=== PATIENT | male | born 1990 | race Caucasian/White ===

== ENCOUNTER 2016-09-20 04:31 | Emergency (ER) | payer BC, OTHER ==
[2016-09-20] MEDS ORDERED: HYOSCYAMINE SULFATE ODT 0.125 MG TAB.SUBL SL ONE (04:38)
[2016-09-20] MEDS ORDERED: ACETAMINOPHEN 500 MG TABLET PO ONE (04:41)
--- NOTE | 2016-09-20 04:43 | Emergency Department Record ---
History of Present Illness - General Chief Complaint: Abdominal Pain Stated Complaint: ABDOMINAL PAIN Time Seen by Provider: 09/20/16 04:31 Source: Patient Mode of Arrival: Ambulatory Limitations: No limitations - History of Present Illness Initial Comments: 26 yo male presents to ED with a CC of bilaterally lower quadrant abdominal pain symptoms. Patient denies nausea/vomiting, but reports "mucousy stools" today. Patient denies fevers, chills, or recent illness. Patient denies urinary symptoms or health problems at his baseline. Patient denies previous abdominal surgeries. MD Complaint: Abdominal pain Onset/Timin -: Days(s) Location: LLQ, RLQ Radiation: None Migration to: No migration Severity: Moderate Quality: Cramping Consistency: Constant Improves With: Nothing Worsens With: Nothing - Related Data Home Medications Medication Instructions Recorded Confirmed Last Taken Abilify 10 mg PO DAILY 07/21/13 09/20/16 09/19/16 Lamotrigine [Lamotrigine ER] 300 mg PO DAILY 07/21/13 09/20/16 09/19/16 Dextroamphetamine/Amphetamine 20 mg PO TID 09/20/16 09/20/16 09/19/16 [Adderall 20 mg Tablet] Previous Rx's Medication Instructions Recorded Ciprofloxacin HCl [Cipro] 500 mg PO Q12HR #19 tablet 09/20/16 Metronidazole [Flagyl] 500 mg PO TID #29 tablet 09/20/16 Allergies Allergy/AdvReac Type Severity Reaction Status Date / Time No Known Drug Allergies Allergy Verified 07/21/13 00:03 Review of Systems Constitutional: Denies: Chills, Fever, Malaise, Night sweats Eyes: Denies: Eye discharge, Eye pain ENT: Denies: Congestion, Ear pain, Epistaxis Respiratory: Denies: Cough, Dyspnea Cardiovascular: Denies: Chest pain, Dyspnea on exertion Endocrine: Denies: Fatigue, Heat or cold intolerance Gastrointestinal: Reports: Abdominal pain, Diarrhea. Denies: Constipation, Nausea, Vomiting Genitourinary: Denies: Incontinence, Retention Musculoskeletal: Denies: Arthralgia, Back pain, Gout, Joint swelling Skin: Denies: Bruising, Change in color Neurological: Denies: Abnormal gait, Confusion, Headache, Seizure Psychiatric: Denies: Anxiety Hematological/Lymphatic: Denies: Anemia, Blood Clots Past Medical History - SOCIAL HISTORY Smoking Status: Current every day smoker - RESPIRATORY Hx Respiratory Disorders: No - CARDIOVASCULAR Hx Cardio Disorders: No - NEURO Hx Neuro Disorders: No - GI Hx GI Disorders: No - Hx Genitourinary Disorders: No - ENDOCRINE Hx Endocrine Disorders: No - MUSCULOSKELETAL Hx Musculoskeletal Disorders: No - PSYCH Hx Psych Problems: Yes Comment:: bipolar - HEMATOLOGY/ONCOLOGY Hx Hematology/Oncology Disorders: No Physical Exam - General General Appearance: Alert, Oriented x3, Cooperative, No acute distress Limitations: No limitations - Head Head exam: Atraumatic, Normocephalic, Normal inspection Head exam detail: negative: Abrasion, Contusion, Whittaker's sign, General tenderness, Hematoma, Laceration - Eye Eye exam: Normal appearance. negative: Conjunctival injection, Periorbital swelling, Periorbital tenderness, Scleral icterus - ENT Ear exam: negative: Auricular hematoma, Auricular trauma Nasal Exam: negative: Active bleeding, Discharge, Dried blood, Foreign body Mouth exam: negative: Drooling, Laceration, Muffled voice, Tongue elevation - Neck Neck exam: Normal inspection. negative: Meningismus, Tenderness - Respiratory Respiratory exam: Normal lung sounds bilaterally. negative: Rales, Respiratory distress, Rhonchi, Stridor - Cardiovascular Cardiovascular Exam: Normal rhythm, Normal heart sounds, Tachycardia - GI/Abdominal GI/Abdominal exam: Soft, Other (Abdomen is non-tender on examination, no rebound or guarding are present). negative: Rebound, Rigid, Tenderness - Rectal Rectal exam: Deferred - exam: Deferred - Extremities Extremities exam: Normal inspection. negative: Pedal edema, Tenderness - Back Back exam: Denies: CVA tenderness (R), CVA tenderness (L) - Neurological Neurological exam: Alert, Normal gait, Oriented X3 - Psychiatric Psychiatric exam: Normal affect, Normal mood - Skin Skin exam: Normal color. negative: Abrasion Type of lesion: negative: abrasion Course Vital Signs 09/20/16 04:37 Temperature 99.8 F H Pulse Rate [ 118 H Pulse Ox Probe] Respiratory 32 H Rate Blood Pressure 144/92 [Left Arm] Pulse Ox 100 - Reevaluation(s) Reevaluation #1: 09/20/16 05:44 Labs reviewed and are grossly unremarkable for an acute process. CT Abdomen/Pelvis: Bowel wall thickending of the ascending and transverse colon c/w colitis. Patient reassessed and updated on all results, will initiate treatment with Cpiro and Flagyl with instructions for outpatient treatment for his colitis symptoms. Patient reports improvement in his abdominal pain symptoms, pulse improved, and the patient appears stable for discharge at this time. 09/20/16 05:51 Medical Decision Making - Lab Data Result diagrams: 09/20/16 04:50 09/20/16 04:50 Disposition Disposition: Discharge Clinical Impression: Colitis Disposition: Home, Self-Care Condition: (2) Stable Instructions: Colitis (ED) Additional Instructions: Return to ED if your symptoms worsen or if you have any concerns. Flagyl and Cipro as directed. Follow-up with your family doctor in 3-5 days as directed. Prescriptions: Ciprofloxacin HCl [Cipro] 500 mg PO Q12HR #19 tablet Metronidazole [Flagyl] 500 mg PO TID #29 tablet Forms: Patient Portal Access Time of Disposition: 05:48 Quality - Quality Measures Quality Measures: N/A - Blood Pressure Screening Blood Pressure Classification: Hypertensive Reading Systolic Measurement: 149 Diastolic Measurement: 90 Screening for High Blood Pressure: < First Hypertensive BP, F/U Documented > [ G8950] First Hypertensive Follow-up Interventions: Referral to alternative/primary care provider.
[2016-09-20 04:55] LABS: BASO % 0.1 % (0-6); EOS % 0.3 % (0-6); HEMATOCRIT 43.3 % (42.0-52.0); MEAN CELL VOLUME 87.8 fl (81-97); MEAN CORPUSCULAR HEMOGLOBIN 30.4 pg (27-33); MEAN CORPUSCULAR HGB CONC 34.6 g/dl (32-36); MEAN PLATELET VOLUME 9.4 fl (7.4-10.4); MONO % 6.5 % (0-9); PLATELET COUNT 293 K/uL (130-400); RED BLOOD COUNT 4.93 M/uL (4.40-5.70); RED CELL DISTRIBUTION WIDTH 13.6 % (11.5-14.5); WHITE BLOOD COUNT W/O DIFF 11.5 K/uL (4.2-12.2)
[2016-09-20 04:59] LABS: URINE APPEARANCE CLEAR; URINE BILIRUBIN NEGATIVE (NEGATIVE); URINE BLOOD NEGATIVE (NEGATIVE); URINE COLOR YELLOW; URINE GLUCOSE (UA) NEGATIVE (NEGATIVE); URINE KETONE NEGATIVE (NEGATIVE); URINE LEUKOCYTE ESTERASE NEGATIVE (NEGATIVE); URINE NITRITE NEGATIVE (NEGATIVE); URINE PROTEIN NEGATIVE (NEGATIVE); URINE UROBILINOGEN 0.2 E.U./dL (0.20 - 1.00)
[2016-09-20 05:07] LABS: ALB/GLOB RATIO 1.5 (1.1-1.8); ALBUMIN 4.1 gm/dL (3.5-5.0); ALKALINE PHOSPHATASE 67 U/L (38-126); ALT/SGPT 53 U/L (21-72); ANION GAP 12.9 (7-16); AST/SGOT 38 U/L (17-59); BILIRUBIN,TOTAL 0.68 mg/dL (0.2-1.3); BLOOD UREA NITROGEN 8 mg/dL (9-20); CARBON DIOXIDE 26.1 mmol/L (22-30); CREATININE 0.9 mg/dL (0.66-1.25); EST GLOMERULAR FILTRATION RATE > 60 ml/min; GLUCOSE,RANDOM 121 mg/dL (70-110); LIPASE 74 U/L (23-300); TOTAL PROTEIN 6.9 gm/dL (6.3-8.2)
[2016-09-20] MEDS ORDERED: CIPROFLOXACIN HCL 500 MG TABLET PO ONE (05:48)
[2016-09-20] MEDS ORDERED: METRONIDAZOLE 250 MG TABLET PO ONE (05:48)
--- NOTE | 2016-09-20 16:23 | CT SCAN REPORT ---
EXAM: CT SCAN ABDOMEN/PELVIS W CONTRAST HISTORY: ABDOMEN AND BACK PAIN. LOOSE STOOLS. TECHNIQUE: Contrast-enhanced helical CT examination of the abdomen and pelvis is performed including delayed images through the kidneys with 100 mL of Omnipaque-300 utilized. Oral contrast was not utilized mildly limiting evaluation of bowel. COMPARISON: None. FINDINGS: Mild patchy opacities are noted within the dependent lungs consistent with atelectasis or less likely infiltrate. No pleural or pericardial effusion. The heart is not enlarged. The liver, spleen, pancreas, and adrenal glands are normal in appearance. The gallbladder is unremarkable and no biliary ductal dilatation is seen. There are a few, too small to characterize, hypodense lesions within the left kidney and a single, too small to characterize, hypodense lesion in the mid right kidney measuring 5 mm. These are nonspecific but likely cysts. The kidneys are otherwise normal in appearance. No intra-abdominal nor retroperitoneal lymphadenopathy is seen. The vasculature is normal in appearance. No pelvic mass, lymphadenopathy, or free pelvic fluid. No intrinsic urinary bladder abnormality is seen though evaluation is limited by lack of distention. The appendix is visualized and normal in appearance. There is wall thickening of the ascending and transverse portions of the colon consistent with nonspecific colitis. There is no associated pneumatosis intestinalis, free intraperitoneal air, nor abscess. There is possible mild wall thickening of the distal rectum versus incomplete distention. No lytic or blastic bone lesion is seen. IMPRESSION: 1. WALL THICKENING OF THE ASCENDING AND TRANSVERSE PORTIONS OF THE COLON CONSISTENT WITH NONSPECIFIC COLITIS. THERE IS ALSO MILD WALL THICKENING OF THE DISTAL RECTUM VERSUS INCOMPLETE DISTENTION. MILD PROCTITIS IS NOT EXCLUDED. 2. TOO SMALL TO CHARACTERIZE HYPODENSE LESIONS IN EACH KIDNEY ARE NONSPECIFIC BUT LIKELY CYSTS. JOB NUMBER: [id number] [facility]
== END 2016-09-20 06:06 | disposition home or self-care (01) ==
LOC: ER 04:31
DX: K52.9 Noninfective gastroenteritis and colitis, unspecified (principal); R10.32 Left lower quadrant pain; R10.31 Right lower quadrant pain; R19.7 Diarrhea, unspecified
CPT/HCPCS: 99283; 99284; 83690; 80053; 81003; 85027; 74177; Q9967; J1980

== ENCOUNTER 2018-09-18 16:18 | Emergency (ER) | payer BC ==
[2018-09-18] MEDS ORDERED: 0.9 % SODIUM CHLORIDE 1,000 ML BAG IV ONE ×2 (16:37→17:59)
--- NOTE | 2018-09-18 16:37 | Emergency Department Record ---
History of Present Illness - General Chief Complaint: Abdominal Pain Stated Complaint: ABDOMINAL PAIN Time Seen by Provider: 09/18/18 16:35 Source: Patient Mode of Arrival: Ambulatory Limitations: No limitations - History of Present Illness Initial Comments: 28 yo male presents with lower abdominal pain for about one week. He states during that time he was constipated. Normally he has about one stool per day. During this time period he had maybe two smaller stools. No fever. He has nausea without vomiting. He did an enema with some relief briefly. He saw his doctor that same day and was feeling better at the time of the PCP appointment. The pain has since returned. No dysuria. No hematuria. No history of abdominal surgery. MD Complaint: Abdominal pain -: Week(s) Location: LLQ, RLQ Radiation: LLQ, RLQ Migration to: LLQ, RLQ Severity: Moderate Quality: Aching Improves With: Bowel movement Worsens With: Nothing Context: Other Associated Symptoms: Anorexia - Related Data Home Medications Medication Instructions Recorded Confirmed Last Taken Dextroamphetamine/Amphetamine 20 mg PO QID 09/18/18 09/18/18 09/18/18 [Adderall 20 mg Tablet] Allergies Allergy/AdvReac Type Severity Reaction Status Date / Time No Known Drug Allergies Allergy Verified 09/18/18 16:26 Review of Systems Constitutional: Denies: Chills, Fever, Malaise, Weakness Eyes: Denies: Eye discharge, Vision change ENT: Denies: Congestion, Throat pain Respiratory: Denies: Cough, Dyspnea Cardiovascular: Denies: Chest pain, Syncope Endocrine: Denies: Fatigue, Polydipsia, Polyuria Gastrointestinal: Reports: Abdominal pain, Nausea. Denies: Constipation, Diarrhea, Hematemesis, Hematochezia, Melena, Vomiting Genitourinary: Denies: Dysuria, Frequency, Hematuria Musculoskeletal: Denies: Arthralgia, Back pain, Myalgia Skin: Denies: Bruising, Change in color, Rash Neurological: Denies: Headache Psychiatric: Denies: Anxiety Hematological/Lymphatic: Denies: Easy bleeding, Easy bruising Past Medical History - SOCIAL HISTORY Smoking Status: Current every day smoker - RESPIRATORY Hx Respiratory Disorders: No - CARDIOVASCULAR Hx Cardio Disorders: No - NEURO Hx Neuro Disorders: No - GI Hx GI Disorders: No - Hx Genitourinary Disorders: No - ENDOCRINE Hx Endocrine Disorders: No - MUSCULOSKELETAL Hx Musculoskeletal Disorders: No - PSYCH Hx Psych Problems: Yes Comment:: bipolar - HEMATOLOGY/ONCOLOGY Hx Hematology/Oncology Disorders: No Physical Exam - General General Appearance: Alert, Oriented x3, Cooperative, No acute distress Limitations: No limitations - Head Head exam: Atraumatic, Normal inspection - Eye Eye exam: Normal appearance, PERRL. negative: Conjunctival injection, Scleral icterus - ENT ENT exam: Normal exam Ear exam: Normal external inspection Nasal Exam: Normal inspection Mouth exam: Normal external inspection Teeth exam: Normal inspection - Neck Neck exam: Normal inspection - Respiratory Respiratory exam: Normal lung sounds bilaterally. negative: Respiratory distress - Cardiovascular Cardiovascular Exam: Normal rhythm, Tachycardia - GI/Abdominal GI/Abdominal exam: Soft, Normal bowel sounds, Tenderness (very soft abdomen but tender across the lower abdomen). negative: Distended, Guarding, Rebound, Rigid - Extremities Extremities exam: Normal inspection - Back Back exam: Denies: CVA tenderness (R), CVA tenderness (L) - Neurological Neurological exam: Alert, Oriented X3 - Psychiatric Psychiatric exam: Normal affect, Normal mood - Skin Skin exam: Dry, Intact, Normal color, Warm Course - Reevaluation(s) Reevaluation #1: 09/18/18 17:59 The labs were reviewed The CBC demonstrates a WBC of 18 The CMP was reviewed. AG 17 The UA is normal 09/18/18 18:02 On recheck the patient states his nausea is much improved The pain is still present but controlled. 09/18/18 19:[address] demonstrates stranding with and inflammatory process in the left pelvic wall. No discrete abscess. Inflection vs inflammatory vs mass per the radiologist. The patient has colitis two years ago that resolved with antibiotics He also states he has a brother with ulcerative colitis 09/18/18 19:47 Dr Long of [facility] accepts the patient for transfer On arrival general surgery will be consulted The case was discussed with Dr Armstrong Medical Decision Making - Lab Data Result diagrams: 09/18/18 16:50 09/18/18 16:50 Disposition Disposition: Transfer Clinical Impression: Pelvic infection, Colitis Disposition: Acute Care Hospital Transfer Transfer To: [facility] Reason For Transfer: Pelvic infection Accepting Physician: Ethan Time Discussed w/Accepting Physician: 19:36 Condition: (2) Stable Forms: Patient Portal Access Time of Disposition: 19:36 Quality - Quality Measures Quality Measures: N/A - Blood Pressure Screening Does Patient Have Any of the Following: No Blood Pressure Classification: Pre-Hypertensive BP Reading Systolic Measurement: 121 Diastolic Measurement: 63 Screening for High Blood Pressure: < Pre-Hypertensive BP, F/U Documented > [G8950] Pre-Hypertensive Follow-up Interventions: Referral to alternative/primary care provider.
[2018-09-18] MEDS ORDERED: KETOROLAC 30 MG/ML VIAL IVP ONE (16:52)
[2018-09-18] MEDS ORDERED: ONDANSETRON HCL IV 4 MG/2 ML VIAL IVP ONE (16:52)
[2018-09-18 17:18] LABS: HEMOGLOBIN 13.4 gm/dl (14.0-18.0); MEAN CELL VOLUME 86.1 fl (81-97); MEAN CORPUSCULAR HEMOGLOBIN 29.5 pg (27-33); MEAN CORPUSCULAR HGB CONC 34.4 g/dl (32-36); PLATELET COUNT 485 K/uL (130-400); RED BLOOD COUNT 4.53 M/uL (4.40-5.70); RED CELL DISTRIBUTION WIDTH 13.3 % (11.5-14.5); WHITE BLOOD COUNT W/O DIFF 18.1 K/uL (4.2-12.2)
[2018-09-18 17:21] LABS: URINE APPEARANCE CLEAR; URINE BILIRUBIN NEGATIVE (NEGATIVE); URINE BLOOD NEGATIVE (NEGATIVE); URINE COLOR YELLOW; URINE GLUCOSE (UA) NEGATIVE (NEGATIVE); URINE KETONE NEGATIVE (NEGATIVE); URINE LEUKOCYTE ESTERASE NEGATIVE (NEGATIVE); URINE NITRITE NEGATIVE (NEGATIVE); URINE PROTEIN NEGATIVE (NEGATIVE)
[2018-09-18 17:29] LABS: BLOOD UREA NITROGEN 12 mg/dL (6-20); EST GLOMERULAR FILTRATION RATE > 60 mL/min
[2018-09-18 17:30] LABS: LIPASE 17 U/L (13-60); TOTAL PROTEIN 7.4 g/dL (6.6-8.7)
[2018-09-18 17:32] LABS: GLUCOSE,RANDOM 93 mg/dL (74-109)
[2018-09-18 17:34] LABS: ALT/SGPT 31 U/L (<41); AST/SGOT 24 U/L (10.0-50.0)
[2018-09-18 17:35] LABS: ALB/GLOB RATIO 1.1 (1.1-1.8); ALBUMIN 3.8 g/dL (4.0-5.0); ALKALINE PHOSPHATASE 131 U/L (40-129)
[2018-09-18] MEDS ORDERED: ACETAMINOPHEN 1,000 MG/100 ML BTL IVPB ONE (18:42)
[2018-09-18] MEDS ORDERED: ERTAPENEM SODIUM 1 G in 0.9 % SODIUM CHLORIDE 100ML 100 ML IVPB ONE (19:27)
[2018-09-18] MEDS ORDERED: 0.9 % SODIUM CHLORIDE 1000ML 1,000 ML IV ONE (19:53)
--- NOTE | 2018-09-19 08:37 | CT SCAN REPORT ---
EXAM: CT OF THE ABDOMEN AND PELVIS WITH CONTRAST HISTORY: ABDOMINAL PAIN. TECHNIQUE: Standard CT imaging of the abdomen and pelvis with intravenous contrast was obtained. Comparison: 09/20/16. FINDINGS: Mild bibasilar atelectasis at the lung bases. The liver is unremarkable. The gallbladder is partially contracted without calcified stones. The pancreas, spleen, and adrenal glands appear normal. The kidneys are unremarkable. The bowel is unremarkable. The appendix is normal. The bladder is thin walled. The bladder is somewhat lifted out of the pelvis which appears to be secondary to prominent fat around the rectum. The rectum is thick walled with mild surrounding fat stranding. In addition there is an inflammatory appearing mass along the left pelvis sidewall just anterior to the internal iliac vessels. Ill defined soft tissue density in this region measures up to 5 cm with surrounding fat stranding. The fat stranding extends up the left retroperitoneum. A discrete enhancing fluid collection is not identified. There is also edema in the presacral space. No retroperitoneal adenopathy. No free air is seen. No destructive osseous lesion. IMPRESSION: 1. MILD RECTAL WALL THICKENING AND PERIRECTAL FAT STRANDING WITH PROMINENT PERIRECTAL FAT. THESE FINDINGS RAISE THE POSSIBILITY FOR PROCTITIS AND POSSIBLY ULCERATIVE COLITIS. UNDERLYING MASS CANNOT BE EXCLUDED. 2. LARGE ILL DEFINED SOFT TISSUE DENSITY MASS IN THE LEFT PELVIS WITH SURROUNDING FAT STRANDING, WHICH HAS THE APPEARANCE OF AN INFLAMMATORY MASS AND MAY BE SECONDARY TO PHLEGMON OR ILL DEFINED ADENOPATHY. NO DISCRETE ABSCESS. SHORT TERM FOLLOW-UP CT IS RECOMMENDED IN 2-3 MONTHS TO INSURE THIS RESOLVES. 3. FINDINGS WERE DISCUSSED WITH THE PATIENT'S EMERGENCY ROOM PROVIDER AT THE TIME OF DICTATION. RECTAL WALL THICKENING WITH PERIRECTAL FAT STRANDING AND PROMINENT PERIRECTAL FAT RAISING THE POSSIBILITY FOR A PROCTITIS AND POSSIBLY ULCERATIVE COLITIS. UNDERLYING MASS IS NOT EXCLUDED. LARGE INFLAMMATORY APPEARING MASS ALONG THE LEFT PELVIC SIDEWALL MAY BE SECONDARY TO PHLEGMON OR ILL DEFINED ADENOPATHY. NO DISCRETE ABSCESS. SHORT TERM FOLLOW-UP CT IS RECOMMENDED IN 2-3 MONTHS TO MAKE SURE THIS RESOLVES. JOB NUMBER: [id number] [facility]TD[facility]
== END 2018-09-18 21:04 | disposition short-term general hospital (02) ==
LOC: ER 16:18
DX: K65.1 Peritoneal abscess (principal); K52.9 Noninfective gastroenteritis and colitis, unspecified; F17.210 Nicotine dependence, cigarettes, uncomplicated
CPT/HCPCS: 99285 ×2; 96365; 96366; 96375; 83690; 80053; 81003; 85027; 74177; Q9967; J1335; J1885; J2405; J7030